=== PATIENT | female | born 1950 | race Caucasian/White ===

== ENCOUNTER → 2022-03-16 | Day surgery (SDC) | payer MEDICARE, MEDICAID ==
[~2022-03-16] VITALS: Ht 149.9 cm; Wt 63.5 kg
[~2022-03-16] MED LIST: AMLO10TA80 PO; ATOR40TA70 PO; BALANCED SALT IRRIG SOLN COMB1 500ML OP ONE; CYCLOPENTOLATE HCL 1% OPHTH DROPS 2ML RIGHTEYE NR; FENTANYL CITRATE/PF 50MCG/ML 2ML VIAL ONE; GABA-529 PO; HYALURONATE SODIUM 10 MG/ML 0.55ML SYRINGE IO ONE; METF-874 PO; MIDAZOLAM HCL 2 MG/2 ML VIAL ONE; OMEP20CA14 PO; PHENYLEPHRINE HCL 10% OPHTH DROPS 5ML RIGHTEYE NR; SODIUM CHLORIDE 0.9% 1,000 ML IV SCH; TROPICAMIDE 1% OPHTH DROPS 15ML RIGHTEYE NR; TRYPAN BLUE 0.5 ML DISP.SYRIN IO ONE
== END | disposition home or self-care (01) ==
LOC: OR 06:00
PROVIDERS: ATTEND Ophthalmology
DX: E11.36 Type 2 diabetes mellitus with diabetic cataract (principal); H25.21 Age-related cataract, morgagnian type, right eye; I10 Essential (primary) hypertension; E78.00 Pure hypercholesterolemia, unspecified; M10.9 Gout, unspecified; M19.90 Unspecified osteoarthritis, unspecified site; Z79.84 Long term (current) use of oral hypoglycemic drugs; Z79.899 Other long term (current) drug therapy; Z98.890 Other specified postprocedural states; Z20.822 Contact with and (suspected) exposure to COVID-19
CPT/HCPCS: 66984; 82962; 87426; C9803; J2250; J3010; J3490; Q9957; V2632